=== PATIENT | female | born 1950 | race Caucasian/White ===

== ENCOUNTER 2024-03-23 06:17 | Observation (INO) ==
--- NOTE | 2024-02-04 14:47 | PAT Medication Instructions ---
Medication Instructions Date of Service February 04, 2024 Home Medications aspirin 81 mg tablet,delayed release 81 mg PO HS betamethasone dipropionate 0.05 % topical cream 1 applic topical DAILY PRN calcium 600 mg (1,500 mg)-vit C-vit D3 500 unit-vit E-minerals tablet 1 tab PO BID diclofenac 50 mg-misoprostol 200 mcg tablet,immed.and delayed release (Arthrotec) 1 tab PO BID flavoxate 100 mg tablet 100 mg PO BID fluconazole 200 mg tablet (Diflucan) 200 mg PO DAILY PRN fluticasone propionate 0.05 % topical cream 1 applic topical DAILY PRN gabapentin 800 mg tablet (Neurontin) 800 mg PO TID lorazepam 0.5 mg tablet (Ativan) 0.25 mg PO DAILY PRN magnesium oxide 400 mg (241.3 mg magnesium) tablet (MagOx) 400 mg PO HS metformin 500 mg tablet 500 mg PO QPM nystatin 500,000 unit tablet 500,000 unit PO DAILY nystatin-triamcinolone 100,000 unit/g-0.1 % topical cream 1 applic topical DAILY omeprazole 40 mg capsule,delayed release 40 mg PO QAM paroxetine HCl 30 mg tablet (Paxil) 45 mg PO HS phenazopyridine 200 mg tablet (Pyridium) 200 mg PO TID PRN simvastatin 40 mg tablet (Zocor) 40 mg PO QPM sulfamethoxazole 800 mg-trimethoprim 160 mg tablet (Bactrim DS) 0.5 tab PO Q2D trazodone 50 mg tablet 50 mg PO DAILY PRN cholecalciferol (vitamin D3) 100 mcg (4,000 unit) capsule 100 mcg PO BID loratadine 10 mg tablet (Claritin) 10 mg PO DAILY PRN melatonin 3 mg tablet 3 mg PO HS tramadol 50 mg tablet 50 mg PO Q6H PRN vit C 250 mg-vit E 90 mg-zinc 40 mg-copper 1 [id number] capsule (Prese rVision AREDS-2) 1 tab PO BID Continue as directed sulfamethoxazole 800 mg-trimethoprim 160 mg tablet (Bactrim DS) 0.5 tab PO Q2D trazodone 50 mg tablet 50 mg PO DAILY PRN(if needed) fluconazole 200 mg tablet (Diflucan) 200 mg PO DAILY PRN(if needed) lorazepam 0.5 mg tablet (Ativan) 0.25 mg PO DAILY PRN(if needed) ASK your prescriber and surgeon aspirin 81 mg tablet,delayed release 81 mg PO HS diclofenac 50 mg-misoprostol 200 mcg tablet,immed.and delayed release (Arthrotec) 1 tab PO BID STOP taking 2 weeks before surgery (or as soon as possible if surgery is within 2 weeks) calcium 600 mg (1,500 mg)-vit C-vit D3 500 unit-vit E-minerals tablet 1 tab PO BID vit C 250 mg-vit E 90 mg-zinc 40 mg-copper 1 [id number] capsule (PreserVision AREDS-2) 1 tab PO BID STOP taking 24 hours before surgery betamethasone dipropionate 0.05 % topical cream 1 applic topical DAILY PRN fluticasone propionate 0.05 % topical cream 1 applic topical DAILY PRN nystatin 500,000 unit tablet 500,000 unit PO DAILY nystatin-triamcinolone 100,000 unit/g-0.1 % topical cream 1 applic topical DAILY DO NOT take the morning of surgery phenazopyridine 200 mg tablet (Pyridium) 200 mg PO TID PRN cholecalciferol (vitamin D3) 100 mcg (4,000 unit) capsule 100 mcg PO BID loratadine 10 mg tablet (Claritin) 10 mg PO DAILY PRN Take morning of surgery With a small sip of water, OTHERWISE NOTHING TO EAT OR DRINK AFTER MIDNIGHT: flavoxate 100 mg tablet 100 mg PO BID gabapentin 800 mg tablet (Neurontin) 800 mg PO TID omeprazole 40 mg capsule,delayed release 40 mg PO QAM tramadol 50 mg tablet 50 mg PO Q6H PRN(if needed) Take evening before surgery flavoxate 100 mg tablet 100 mg PO BID gabapentin 800 mg tablet (Neurontin) 800 mg PO TID magnesium oxide 400 mg (241.3 mg magnesium) tablet (MagOx) 400 mg PO HS metformin 500 mg tablet 500 mg PO QPM paroxetine HCl 30 mg tablet (Paxil) 45 mg PO HS phenazopyridine 200 mg tablet (Pyridium) 200 mg PO TID PRN(if needed) simvastatin 40 mg tablet (Zocor) 40 mg PO QPM cholecalciferol (vitamin D3) 100 mcg (4,000 unit) capsule 100 mcg PO BID melatonin 3 mg tablet 3 mg PO HS tramadol 50 mg tablet 50 mg PO Q6H PRN(if needed) Other Notes If you have any questions please call us at [phone] or [phone] or [phone] or [phone]
--- NOTE | 2024-02-09 13:20 | Anesthesiology Consultation ---
Date of Service February 09, 2024 Assessment & Plan (1) Encounter for pre-operative examination: Chart Review Chart Review: Acceptable Risk for Surgery (pending PCP response re: hyperkalemia ) and Patient seen in Pre Admission Testing - Please send optimization form [facility] - Check BSG AM DOS Refused SAB - would like GA Patient with macular degeneration- difficulty reading - Patient is NOT an ideal OPJ candidate (currently 23 hour obs) Per PAT appt on 02/09/24, no recent illness/disease exposures, illness related symptoms, or recent illness/disease positive tests. Will leave to surgeon's discretion if preop Covid testing needed Teaching & Discussion Pre-Anesthesia Teaching/Discussion Notes: Instructed NPO after midnight before surgery,except medications with 15 cc of water. Medication instructions provided according to the PAT guidelines. History Surgery Operation Date: 03/01/24 07:00 Proposed Procedures p Right Total Knee Arthroplasty - Rafael Rose MD Height/Weight Height: 5 ft 2.5 in Weight: 74.8 kg Allergies Allergy/AdvReac Type Severity Reaction Status Date / Time acetaminophen Allergy Intermediate panic Verified 02/04/24 12:06 [From Tylenol Cold attack Multi-Symptom] caffeine Allergy Intermediate heart Verified 02/04/24 12:06 [From Midol Max St Menstrual] palpitations codeine Allergy Intermediate panic Verified 02/04/24 12:06 attack pamabrom [From Midol] Allergy Intermediate heart Verified 02/04/24 12:07 palpitation pyrilamine Allergy Intermediate heart Verified 02/04/24 12:08 [From Midol Max St Menstrual] palpitation escitalopram [From Lexapro] Allergy Unknown restless Verified 02/09/24 13:32 leg pregabalin [From Lyrica] Allergy Unknown panic Verified 02/09/24 13:32 attack pseudoephedrine Allergy Unknown panic Verified 02/04/24 12:07 [From Tylenol Cold attacks Multi-Symptom] ziprasidone [From Geodon] Allergy restless Verified 02/09/24 13:32 leg Medications Home Medications Medication Instructions Recorded Confirmed Last Taken aspirin 81 mg tablet,delayed 81 mg PO HS 11/02/23 02/04/24 Unknown release betamethasone dipropionate 0.05 % 1 applic topical DAILY PRN . 11/02/23 02/04/24 Unknown topical cream calcium 600 mg (1,500 mg)-vit 1 tab PO BID 11/02/23 02/04/24 Unknown C-vit D3 500 unit-vit E-minerals tablet diclofenac 50 mg-misoprostol 200 1 tab PO BID 11/02/23 02/04/24 Unknown mcg tablet,immed.and delayed release (Arthrotec) flavoxate 100 mg tablet 100 mg PO BID 11/02/23 02/04/24 Unknown fluconazole 200 mg tablet 200 mg PO DAILY PRN yeast infection 11/02/23 02/04/24 Unknown (Diflucan) fluticasone propionate 0.05 % 1 applic topical DAILY PRN . 11/02/23 02/04/24 U nknown topical cream gabapentin 800 mg tablet 800 mg PO TID 11/02/23 02/04/24 Unknown (Neurontin) lorazepam 0.5 mg tablet (Ativan) 0.25 mg PO DAILY PRN Anxiety 11/02/23 02/04/24 Unknown magnesium oxide 400 mg (241.3 mg 400 mg PO HS 11/02/23 02/04/24 Unknown magnesium) tablet (MagOx) metformin 500 mg tablet 500 mg PO QPM 11/02/23 02/04/24 Unknown nystatin 500,000 unit tablet 500,000 unit PO DAILY 11/02/23 02/04/24 Unknown nystatin-triamcinolone 100,000 1 applic topical DAILY 11/02/23 02/04/24 Unknown unit/g-0.1 % topical cream omeprazole 40 mg capsule,delayed 40 mg PO QAM 11/02/23 02/04/24 Unknown release paroxetine HCl 30 mg tablet (Paxil) 45 mg PO HS 11/02/23 02/04/24 Unknown phenazopyridine 200 mg tablet 200 mg PO TID PRN bladder 11/02/23 02/04/24 Unknown (Pyridium) infection symptoms simvastatin 40 mg tablet (Zocor) 40 mg PO QPM 11/02/23 02/04/24 Unknown sulfamethoxazole 800 0.5 tab PO Q2D 11/02/23 02/04/24 Unknown mg-trimethoprim 160 mg tablet (Bactrim DS) trazodone 50 mg tablet 50 mg PO DAILY PRN Sleep 11/02/23 02/04/24 Unknown cholecalciferol (vitamin D3) 100 100 mcg PO BID 02/04/24 02/04/24 Unknown mcg (4,000 unit) capsule loratadine 10 mg tablet (Claritin) 10 mg PO DAILY PRN skin itching 02/04/24 02/04/24 Unknown melatonin 3 mg tablet 3 mg PO HS 02/04/24 02/04/24 Unknown tramadol 50 mg tablet 50 mg PO Q6H PRN Pain 02/04/24 02/04/24 Unknown vit C 250 mg-vit E 90 mg-zinc 40 1 tab PO BID 02/04/24 02/04/24 Unknown mg-copper 1 [id number] capsule (PreserVision AREDS-2) Past Medical History Medical History Anxiety and depression Arthritis of right hip Fibromyalgia GERD (gastroesophageal reflux disease) well controlled and stable History of mononucleosis In 20s - possibly residual fatigue Hx of basal cell carcinoma s/p excision Hyperlipidemia Insomnia Interstitial cystitis frequent bladder infections>follows with Dr. Chance (urologist) [facility] Macular degeneration utilizes a reading machine Osteoarthritis Prediabetes Severe scoliosis Spinal stenosis Yeast infection on skin>reoccurring during summer months uses fluconazole topical PRN - no significant issues at this time Exercise / Class Metabolic Activity III < 4 Walking/Shop/Light housework (no chest pain, minimal SOB with flat surface ambulation - use wheeled walker ) Past Family History Family History Other No family history of adverse response to anesthesia Past Surgical History Surgical History History of cataract surgery right History of cholecystectomy History of colonoscopy History of cystoscopy Past Anesthesia History No Hx of Anesthesia Complications and No Family Hx of Anesthesia Complications (with exception to sister PONV ) History of PONV No Hx of PONV and No Hx of Motion Sickness (not currently ) Social History Smoking Status: Never smoker Hx Alcohol Use: Yes Alcohol type: wine alcohol intake frequency: a few times a month substance use type: does not use Review of Systems - Hx of snoring- no hx of sleep study Patient denies chest pain, shortness of breath at rest, cough, wheezing, palpitations. No hx of seizures, stroke, LA. No hx of blood clots or blood transfusions Physical Exam Vital Signs VITALS BP 115/74 P 73 TEMP 98.1 SP02 97% RESP 16 Constitutional no acute distress ENMT Mouth: no TMJ clicking Thyromental Distance: > or= 3.5 Finger Breadths (3.5) Mallampati Class: III Crowns to molars and side teeth Neck neck extension not limited Respiratory normal respiratory effort; no respiratory distress Auscultation: lungs clear to auscultation bilaterally; no wheezes Cardiovascular Rate/Rhythm: regular rate and regular rhythm Heart Sounds: no murmur Vessels: no carotid bruit Musculoskeletal Spine: no pain with cervical ROM Extremities: extremities normal to inspection Psychiatric Orientation: alert Lab Results Anesthesia Preop Results Results Anesthesia Widget: WBC 6.13 K/ul (4.8-10.8) 02/09/24 Hgb 12.7 g/dl (12.0-16.0) 02/09/24 Hct 39.6 % (37.0-47.0) 02/09/24 Plt 348 K/uL (130-400) 02/09/24 Na 139 mmol/L (136-145) 02/09/24 K 5.5 mmol/L (3.5-5.1) H 02/09/24 Cl 103 mmol/L (98-107) 02/09/24 CO2 31 mmol/L (21-32) 02/09/24 BUN 29 mg/dl (6-23) H 02/09/24 Creat 0.70 mg/dl (0.6-1.2) 02/09/24 Glucose Level 105 mg/dl (70-99(Fasting)) H 02/09/24 PT 10.9 Seconds (9.0-12.0) 02/09/24 PTT 28 Seconds (21-31) 02/09/24 INR 1.0 (0.9-1.1) 02/09/24 HA1c 6.0 % (4.5-5.6) H 02/09/24 Blood Type B Positive 02/09/24 Antibody Screen NEGATIVE 02/09/24 Testing Laboratory Results Hyperkalemia - will send optimization note to PCP Electrocardiogram Date: 02/10/24 Findings: + NSR @ (71bpm) Normal EKG per cardio Chest X-Ray Date: 02/10/24 Findings: + NAD FINDINGS: PA and lateral chest radiographs are obtained. No prior studies are available for comparison at the time of dictation. The cardiomediastinal silhouette is unremarkable noting atherosclerotic calcification of the thoracic aorta. The lungs and pleural spaces are clear. There is no pneumothorax. The skeletal structures are osteopenic. The bony thorax appears intact. Degenerative change and scoliosis is noted in the thoracic spine. Cholecystectomy clips are seen in the upper abdomen.
--- NOTE | 2024-02-27 09:06 | History & Physical Report ---
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 She is failed conservative measures. She like to have her knee fixed. Plan: Orgran taken to the operating do right total knee replacement. The risks Mente this procedure explained the patient include but not limited to DVT PE infection neurological injury vascular injury bleeding palm pain limb range of motion stiffness persistent instability persistent pain, need for further surgery in the future. Patient understands and desires to proceed. She got a severe deformity to her knee. She got MCL laxity. Will need to put a PS plus insert and probably. Will cement the tibial stem to try to maximize her stability. She is hoping to be discharged to home. She is going to have a friend come and stay with her. Will plan on DVT prophylaxis including thigh- high teds, SCDs, aspirin twice a day. History of Present Illness Chief Complaint: . Right knee pain discomfort and instability Primary Care Provider: NO PCP . Patient is a 73-year-old female from [place] who presents specifically for surgical treatment of her right knee. Data got a long history of knee problems followed by Dr. Cisneros as well as Dr. Justyna Swanson. With a past several years she developed increased pain discomfort and progressive deformity to her right knee and leg. Is having more more difficulty getting around. She has had to resort to a wheeled walker. She has been through therapy without much in the way of relief. She tried wearing a brace with little result. She takes multiple oral medicines that takes a little bit of the edge off. She enjoys riding a bike but have more difficulty doing this. As she now like to have her knee fixed. Allergies Allergy/AdvReac Type Severity Reaction Status Date / Time acetaminophen Allergy Intermediate panic Verified 02/04/24 12:06 [From Tylenol Cold attack Multi-Symptom] caffeine Allergy Intermediate heart Verified 02/04/24 12:06 [From Midol Max St Menstrual] palpitations codeine Allergy Intermediate panic Verified 02/04/24 12:06 attack pamabrom [From Midol] Allergy Intermediate heart Verified 02/04/24 12:07 palpitation pyrilamine Allergy Intermediate heart Verified 02/04/24 12:08 [From Midol Max St Menstrual] palpitation escitalopram [From Lexapro] Allergy Unknown restless Verified 02/09/24 13:32 leg pregabalin [From Lyrica] Allergy Unknown panic Verified 02/09/24 13:32 attack pseudoephedrine Allergy Unknown panic Verified 02/04/24 12:07 [From Tylenol Cold attacks Multi-Symptom] ziprasidone [From Geodon] Allergy restless Verified 02/09/24 13:32 leg Home Medications Medication Instructions Recorded Confirmed Type aspirin 81 mg tablet,delayed 81 mg PO HS 11/02/23 02/04/24 History release betamethasone dipropionate 0.05 % 1 applic topical DAILY PRN . 11/02/23 02/04/24 History topical cream calcium 600 mg (1,500 mg)-vit 1 tab PO BID 11/02/23 02/04/24 History C-vit D3 500 unit-vit E-minerals tablet diclofenac 50 mg-misoprostol 200 1 tab PO BID 11/02/23 02/04/24 History mcg tablet,immed.and delayed release (Arthrotec) flavoxate 100 mg tablet 100 mg PO BID 11/02/23 02/04/24 History fluconazole 200 mg tablet 200 mg PO DAILY PRN yeast infection 11/02/23 02/04/24 History (Diflucan) fluticasone propionate 0.05 % 1 applic topical DAILY PRN . 11/02/23 02/04/24 History topical cream gabapentin 800 mg tablet 800 mg PO TID 11/02/23 02/04/24 History (Neurontin) lorazepam 0.5 mg tablet (Ativan) 0.25 mg PO DAILY PRN Anxiety 11/02/23 02/04/24 History magnesium oxide 400 mg (241.3 mg 400 mg PO HS 11/02/23 02/04/24 History magnesium) tablet (MagOx) metformin 500 mg tablet 500 mg PO QPM 11/02/23 02/04/24 History nystatin 500,000 unit tablet 500,000 unit PO DAILY 11/02/23 02/04/24 History nystatin-triamcinolone 100,000 1 applic topical DAILY 11/02/23 02/04/24 History unit/g-0.1 % topical cream omeprazole 40 mg capsule,delayed 40 mg PO QAM 11/02/23 02/04/24 History release paroxetine HCl 30 mg tablet (Paxil) 45 mg PO HS 11/02/23 02/04/24 History phenazopyridine 200 mg tablet 200 mg PO TID PRN bladder 11/02/23 02/04/24 History (Pyridium) infection symptoms simvastatin 40 mg tablet (Zocor) 40 mg PO QPM 11/02/23 02/04/24 History sulfamethoxazole 800 0.5 tab PO Q2D 11/02/23 02/04/24 History mg-trimethoprim 160 mg tablet (Bactrim DS) trazodone 50 mg tablet 50 mg PO DAILY PRN Sleep 11/02/23 02/04/24 History cholecalciferol (vitamin D3) 100 100 mcg PO BID 02/04/24 02/04/24 History mcg (4,000 unit) capsule loratadine 10 mg tablet (Claritin) 10 mg PO DAILY PRN skin itching 02/04/24 02/04/24 History melatonin 3 mg tablet 3 mg PO HS 02/04/24 02/04/24 History tramadol 50 mg tablet 50 mg PO Q6H PRN Pain 02/04/24 02/04/24 History vit C 250 mg-vit E 90 mg-zinc 40 1 tab PO BID 02/04/24 02/04/24 History mg-copper 1 [id number] capsule (PreserVision AREDS-2) Wheeled Walker #1 ea 02/23/24 Rx Past Med/Surg History Problem List Right knee DJD Medical History Arthritis of right hip Insomnia Spinal stenosis Severe scoliosis Fibromyalgia Yeast infection on skin>reoccurring during summer months uses fluconazole topical PRN - no significant issues at this time Osteoarthritis GERD (gastroesophageal reflux disease) well controlled and stable Hx of basal cell carcinoma s/p excision History of mononucleosis In 20s - possibly residual fatigue Anxiety and depression Prediabetes Hyperlipidemia Interstitial cystitis frequent bladder infections>follows with Dr. Chance (urologist) [facility] Macular degeneration utilizes a reading machine Surgical History History of colonoscopy History of cystoscopy History of cholecystectomy History of cataract surgery right Family History Other No family history of adverse response to anesthesia Social History Smoking Status: Never smoker Second Hand Exposure: No; Hx Alcohol Use: Yes Alcohol type: wine Preferred Language: [place] Communication Ability Comment: can read if print is huge Optometry Assistant Required: No Beliefs That Will Affect Care: None Current Living Situation: Spouse Feels Safe at Home: Yes Assistive Devices: Brace/Splint/Immobilizer, Cane and Walker Review of Systems All systems reviewed & are unremarkable except as noted in HPI & below. Physical Exam . Physical examination was a pleasant fairly talkative elderly female. Examination of the right knee reveals a patient walks with a markedly antalgic gait. She comes in using a wheeled walker. She got severe valgus deformity to her knee which is increased with weightbearing. Her knee tends to collapse. Her range of motion is about 10 degrees short of full extension to 110 degrees of flexion. No particular instability. To valgus/laxity to a stress testing. No pain with hip motion. Constitutional WD/WN, vitals as above Neck trachea midline, no thyromegaly Respiratory normal respiratory effort, lungs clear to auscultation Cardiovascular RRR, no murmur, no edema Gastrointestinal (Abdomen) normal bowel sounds, soft, nontender, no hepatosplenomegaly Results & Data Results & Data Laboratory Results . Diagnostic Findings . X-rays of right knee were reviewed. Shows advanced right knee lateral co mpartment DJD. She has complete loss of lateral joint space. She got severe valgus deformity to her knee with gapping on the medial side. Diffuse osteopenia. PG Care Time/CCT Total # of Minutes Spent Total Time Spent with Patient: Total time spent is greater than 50% in coordination of care (as documented) at patient's floor/unit and/or counseling patient: Coding Level of Care Code None Diagnoses Right knee DJD M17.11
[~2024-03-23 06:17] MED LIST: ACETAMINOPHEN 500 MG TAB PO SCH; CeleBREX 200 MG CAP PO SCH; FAMOTIDINE 20 MG TAB PO SCH; LR 15ML/HR IV SCH; LR 60ML/HR IV SCH; METOCLOPRAMIDE HCL 10 MG TABLET PO SCH; ROPIV 0.5% 246mg, Ketorolac 30mg, EPINEPHrine 0.5mg in NSS INFIL SCH; TRANEXAMIC ACID 1,000 MG **IV Intra-op IV SCH; ceFAZolin 2000MG 2,000 MG/15 ML SYR IV SCH; dexAMETHasone**PF** 10 MG/ML VIAL IV SCH
[2024-03-23] MEDS ORDERED: BUPIVACAINE 0.5 % 5 MG/1 ML PF 10ML VIAL ONE (06:21)
[2024-03-23] MEDS ORDERED: ROPIVACAINE 0.5% 5 MG/ML 30 ML VIAL ONE (06:21)
--- NOTE | 2024-03-23 06:49 | History & Physical Bridge Note ---
Date of Service March 23, 2024 History & Physical Bridge Note I have examined the patient, reviewed the History & Physical and in the interval since the performance of the History & Physical I have noted the following changes of clinical significance: no changes noted
[2024-03-23] MEDS: ACETAMINOPHEN 500 MG TAB PO SCH ×2 (07:20→14:05)
[2024-03-23] MEDS: LR 60ML/HR IV SCH (07:21)
[2024-03-23] MEDS: CeleBREX 200 MG CAP PO SCH (07:26)
[2024-03-23] MEDS: METOCLOPRAMIDE HCL 10 MG TABLET PO SCH (07:26)
[2024-03-23] MEDS: FAMOTIDINE 20 MG TAB PO SCH (07:26)
[2024-03-23] MEDS: LR 15ML/HR IV SCH (07:36)
[2024-03-23] MEDS: dexAMETHasone**PF** 10 MG/ML VIAL IV SCH (07:36)
[2024-03-23] MEDS ORDERED: ePHEDrine sulfate 50 MG/ML AMP IV PRN (07:50)
[2024-03-23] MEDS ORDERED: ONDANSETRON INJ 2 MG/ML 2 ML VIAL IV PRN ×2 (07:50→12:21)
[2024-03-23] MEDS ORDERED: fentaNYL citrate PF 100 MCG/2 ML VIAL IV PRN (07:50)
[2024-03-23] MEDS ORDERED: ATROPINE SULFATE 0.1 MG/ML 10ML SYR IV PRN (07:50)
[2024-03-23] MEDS ORDERED: fentaNYL citrate PF 100 MCG/2 ML VIAL ONE (07:52)
[2024-03-23] MEDS ORDERED: MIDAZOLAM HCL 1 MG/ML 2ML VIAL ONE (07:52)
[2024-03-23] MEDS ORDERED: PROPOFOL IV EMULSION 10 MG/ML 20 ML VIAL IV ONE (08:33)
[2024-03-23] MEDS ORDERED: LIDOCAINE 2% 2 ML VIAL/AMP(20MG/ML) INFIL ONE (08:33)
[2024-03-23] MEDS: ceFAZolin 2000MG 2,000 MG/15 ML SYR IV SCH (08:49)
[2024-03-23] MEDS ORDERED: HYDROmorphone INJ 2 MG/ML SYR/VIAL ONE (09:20)
[2024-03-23] MEDS ORDERED: METOCLOPRAMIDE HCL INJ 5 MG/ML 2 ML VIAL ONE (09:22)
[2024-03-23] MEDS: ORTHO JOINT ANESTHETIC ONE (09:24)
--- OUTSIDE RECORDS SUMMARY | 2024-03-23 09:27 | External Medical Summary | Summary of Care ---
Author Name Unknown Organization [facility] [address] [facility] [address] Phone [phone] Care Team Providers Care Metal Fabricator Welder Name Role Phone Raegan Schaffer DO Primary Care Provide r Reason for Visit * Reason Comments eRx-Medication Refill Encounter Details Date Type Department Care Team (Late st Contact Info) Description 03/14/2024 Refill Rheumatology [place] [id number] [place] [address] Javy Steel MD [facility] [place] [address] Allergies Active Allergy Reactions Criticality Noted Date Comments Escitalopram Oxalate 07/28/2012 Restless legs Ziprasidone Hydrochloride 01/29/2012 Restless legs Pregabalin 01/29/2012 Made her aggitated Miconazole Nitrate 01/29/2012 Vaginal burning documented as of this encounter (statuses as of 03/15/2024) Medications Medication Sig Dispensed Refills Start Date End Date Status ATIVAN 0.5 MG PO TABS 1/2 tablet daily Active ZOCOR 20 MG PO TABS 1 daily Active PAXIL 30 MG PO TABS two tablets by mouth one time daily Active VITAMIN D 2000 UNITS PO CAPS 1 daily Active METAMUCIL 30.9 % PO POWD daily Active Meth-Hyo-M Bl-Na Phos-Ph Mitch (URO-MP) 118 MG CAPS As needed 0 10/20/19 16 Active Nystatin 502518 UNITS TABS Take 1 Tab by mouth 3 times a day. As needed 0 12/10/19 16 Active Aspirin 81 MG Tablet Take 1 Tablet by mouth in the morning. Active PREVIDENT 0.2 % SOLN daily 2 09/08/20 16 Active CYANOCOBALAMIN (VITAMIN B-12) 500 MCG Sublingual Tablet Take 1 Tablet by mouth in the morning. Active fluconazole (DIFLUCAN) 150 MG Tablet Take 1 Tablet by mouth in the morning and 1 Tablet before bedtime. 0 02/24/20 19 Active Ketoconazole 2 % cream Twice daily 0 03/06/20 19 Active flavoxATE HCl 100 MG TABS Take 100 mg by mouth daily. 12/06/19 20 Active melatonin 3 MG Tablet Take 1 Tablet by mouth in the morning. 09/09/20 18 Active Magnesium Oxide 400 (240 Mg) MG Tablet Take 1 Tablet by mouth in the morning. 09/09/20 18 Active Calcium Carbonate 600 MG Oral Tablet Take 1 Tablet by mouth in the morning. Active Betamethasone Dipropionate Aug 0.05 % External Cream (Diprolene AF) Apply 2 g topically to affected area daily. 08/01/20 20 Active metFORMIN HCl ER 500 MG Oral Tablet Extended Release 24 Hour (Glucophage XR) Take 1 Tablet by mouth daily with dinner. Active Omeprazole 20 MG Oral Capsule Delayed Release (PriLOSEC) Take 1 Capsule by mouth in the morning. Active Rolling Walker/BurgundyInd ications:Generaliz ed OA,Primary osteoarthritis of both knees Use as directed. Rolling walker with seat. Diagnosis - Knee osteoarthritis M17.0, M15.9 (generalized OA) 1 Each 07/15/20 23 Active traZODone HCl 50 MG Oral Tablet (Desyrel)Indicatio ns:Insomnia take 1 tablet by mouth at bedtime if needed for sleep 60 Tablet 2 08/28/20 23 Active Gabapentin 800 MG Oral Tablet (Neurontin)Indicat ions:Spinal stenosis of lumbar region without neurogenic claudication take 1 tablet by mouth every morning , 1 tablet AT NOON AND ONE TABLET BEFORE BEDTIME 270 Tablet 3 09/22/20 23 Active traMADol HCl 50 MG Oral Tablet (Ultram)Indication s:Fibromyalgia Take 1 Tablet by mouth every 6 hours as needed for Pain, Severe. 30 Tablet 1 11/16/19 24 Active Diclofenac-miSOPRO Stol 50-0.2 MG Oral Tablet Delayed Release take 1 tablet by mouth twice a day with food 180 Tablet 1 03/15/20 24 Active Diclofenac-miSOPRO Stol 50-0.2 MG Oral Tablet Delayed Release take 1 tablet by mouth twice a day with food 180 Tablet 4 03/06/20 23 024 Discontinued documented as of this encounter (statuses as of 03/15/2024) Active Problems Problem Noted Date Diagnosed Date Macular degeneration of both eyes 06/26/2023 Primary osteoarthritis, right shoulder Sacroiliitis 09/02/2017 Trochanteric bursitis of both hips 11/26/2016 Primary osteoarthritis of both knees 06/18/2016 Osteoarthritis, hip, bilateral 08/29/2014 Malignant basal cell neoplasm of skin Overview: face ICD-10 update of inactive term Fibromyalgia Spinal stenosis of lumbar region Depression Generalized OA Rosacea Fatty liver disease, nonalcoholic IBS (irritable bowel syndrome) Chronic interstitial cystitis MEDICATION USE AGREEMENT documented as of this encounter (statuses as of 03/15/2024) Immunizations Name Administration Dates Next Due COVID-19 mRNA, LNP-s, No Pre serve, 2-Dose Series (Moderna) 11/30/2020,11/02/2020 COVID-19, mRNA, LNP-s, PF, B ooster, 100mcg/0.5mg (Moderna) 12/18/2021,07/31/2021 Covid-19, Mrna, Lnp-s, Pf, B ivalent, 30 Mcg, IM, 12 yrs and above (Pfizer) 06/19/2022 Pneumococcal Conjugate Vaccine, 20-valent (Prevn ar20) 06/03/2022 Seasonal Influenza, Recombinant, RIV4, PF, (Flub lock) 08/16/2021 Seasonal Influenza, Split, IIV3, With Preserve, Inj 08/16/2021 documented as of this encounter Social History Tobacco Use Types Packs/Day Years Used Date Smoking Tobacco: Never Smokeless Tobacco: Never Alcohol Use Standard Drinks/Week Comments No 0 (1 standard drink = 0.6 oz pur e alcohol) Sex and Gender Information Value Date Recorded Sex Assigned at Not on file Gender Identity Not on file Sexual Orientation Not on file Job Start Date Occupation Industry Not on file Not on file Not on file documented as of this encounter Miscellaneous Notes * Telephone Encounter - Lizette Hidalgo [facility] - 03/15/2024 4:52 PM EDTSigned Prescriptions: Disp Refills Diclofenac-miSOPROStol 50-0.2 MG Oral Tabl*180 Ta*1 Sig: take 1 tablet by mouth twice a day with foodAuthorizing Provider: JAVY STEEL User: LIZETTE HIDALGO * Telephone Encounter - Lizette Hidalgo [facility] - 03/15/2024 4:46 PM EDT Rheumatology: Refill Request(s) Per review of the refill parameters, Medication was refilled Lizette Hidalgo [facility] Clinical Pharmacist Rheumatology Department 03/15/2024,4:46 PM * Telephone Encounter - Sumanth Lamb - 03/14/2024 8:27 PM EDTPending Prescriptions: Disp Refills Diclofenac-miSOPROStol 50-0.2 MG Oral Tabl*180 Ta*4 Sig: take 1 tablet by mouth twice a day with food * Telephone Encounter - Sumanth Lamb - 03/14/2024 8:25 PM EDT Did you pend patient's preferred pharmacy and medication before forwarding?yes Pharmacy: [id number] [facility] [place] Pending Prescriptions: Disp Refills Diclofenac-miSOPROStol 50-0.2 MG Oral Tab*180 Ta*4 Sig: take 1 tablet by mouth twice a day with food Last Visit: 06/26/2023 (in office), 10/23/2021 (telemedicine) Next Visit: 06/29/2024 If no future appointments scheduled, and last appointment is greater than a year ago, please schedule patient for a follow-up appointment Last date the medication was ordered: 04/10/2023 Is this request for a controlled substance?No Urine Drug Screen: Results for orders placed or performed in visit on 06/26/23 PAIN MANAGEMENT DRUG PANEL, URINE W/ INTERPRETATION Result Value Compliance Interpretation Based on the medication information provided: The presence of tramadol and o-desmethyltramadol is CONSISTENT with tramadol use. The absence of lorazepam is CONSISTENT with no recent lorazepam use prior to urine drug testing. Amphetamines Screen, U Negative Benzodiazepines Screen, U Refer to confirmation results (A) Cannabinoids Screen, U Negative Cocaine Metabolite Screen, U Negative Fentanyl Screen, U Negative Hydrocodone Screen, U Negative Methadone Metabolite Screen, U Negative Morphine/Codeine Screen, U Negative Oxycodone Screen, U Negative Valid Interpretation Normal Creatinine, U 50 Narrative Cutoff Concentrations: Drug Level Amphetamines 500 ng/mL Benzodiazepines 100 ng/mL Cannabinoids 50 ng/mL Cocaine Metabolite 150 ng/mL Fentanyl 1 ng/mL Hydrocodone / Hydromorphone 300 ng/mL Methadone Metabolite 100 ng/mL Morphine / Codeine 300 ng/mL Oxycodone / Oxymorphone 100 ng/mL Screening results are presumptive and can only be used for medical purposes. Confirmatory testing is available upon request. Results for orders placed or performed in visit on 10/19/12 TOX SCREEN, URINE, W/ CONFIRMATION Result Value Amphetamine NEGATIVE Barbiturates NEGATIVE Benzodiazepines NEGATIVE Cannabinoids NEGATIVE Cocaine Metabolite NEGATIVE Morphine / Codeine NEGATIVE OXYCODONE NEGATIVE METHADONE MEDICAL NEGATIVE TOX COMMENT SEE COMMENT DETECTION LIMIT SEE COMMENT Patient Phone Numbers Labs: Lab Results Component Value Date/Time CREAT 0.72 07/15/2023 12:00 AM CREAT 0.75 04/23/2022 12:07 PM CREAT 0.6 03/03/2013 04:14 PM POTASSIUM 4.1 07/15/2023 12:00 AM POTASSIUM 4.5 04/23/2022 12:07 PM POTASSIUM 4.6 03/03/2013 04:14 PM TSH 0.656 07/15/2023 12:00 AM LDLCALC 133 07/15/2023 12:00 AM LDLCALC 105 04/30/2021 09:58 AM ALT 28 03/03/2013 04:14 PM HGBA1C 6.3 07/15/2023 12:00 AM HGBA1C 6.0 04/23/2022 12:07 PM documented in this encounter Plan of Treatment Upcoming Encounters Date Type Department Care Team (Late st Contact Info) Description 06/29/2024 11:00 AM EDT Office Visit Rheumatology [place] [id number] [place] [address] Javy Steel MD [facility] [place] [address] Health Maintenance Due Date Last Done Comments Depression Monitoring 1962 Hepatitis C Screening 1968 DTaP,Tdap,and Td Vaccines (1 - Tdap) 1969 Cologuard 1995 Colonoscopy 1995 Colorectal Cancer Screening 1995 Fecal Occult Blood Test 1995 Sigmoidoscopy 1995 Zoster Vaccines (1 of 2) 2000 COVID-19 Vaccine ( season) 2023 06/19/2022, 12/18/2021, 07/31/2021, Additional history exists Mammogram 02/05/2024 02/04/2023, 12/27, 01/03/2021, Additional history exists Lipid Panel 12/17/2028 12/18/2023, 06/28, 07/15/2023, Additional history exists DXA Scan 07/30/2030 07/30/2023, 1109/2020, 07/25/2019 Pneumococcal Vaccine: 65+ Years Completed 06/03/2022 Influenza Vaccine (FLU shot) Completed , 08/16/2021, 08/16/2021 GARDASIL-HPV IMMUNIZATION SERIES Aged Out No longer eligible based on patient's age to complete this topic Hepatitis B Aged Out No longer eligi ble based on patient's age to complete this topic MENINGOCOCCAL (MENACTRA/MENVEO) Aged Out No longer eligible based on patient's age to complete this topic documented as of this encounter Medical Devices Not on filedocumented as of this encounter Care Teams Metal Fabricator Welder Relationship Specialty Start Date End Date Raegan Schaffer DO [address] [facility] [address] [place] [address] PCP - General Family Medicine 10/31/21 documented as of this encounter
[2024-03-23] MEDS ORDERED: hydrALAZINE HCL 20 MG/ML VIAL ONE (09:36)
[2024-03-23] MEDS: VANCOMYCIN HCL 1000MG/20ML VIAL ONE (10:05)
[2024-03-23] MEDS: TRANEXAMIC ACID 1,000 MG **IV Intra-op IV SCH (10:05)
[2024-03-23] MEDS: ROPIV 0.5% 246mg, Ketorolac 30mg, EPINEPHrine 0.5mg in NSS INFIL SCH (10:18)
[2024-03-23] MEDS ORDERED: ONDANSETRON INJ 2 MG/ML 2 ML VIAL ONE (10:42)
--- NOTE | 2024-03-23 11:11 | Operative Report ---
PG Post Operative Report Pre & Post Diagnosis Operation Date: 03/23/24 08:50 Pre-Op Diagnosis: Right Knee Degenerative Joint Disease Post-Op Diagnosis: Right Knee Degenerative Joint Disease I identified the patient and participated in the time-out.: Yes Procedure Operation Date: 03/23/24 08:50 Actual Procedures p Right Total Knee Arthroplasty(Right) - Rafael Rose MD Surgeon Rafael Rose MD Marketing Consultant Jacob Carlisle PA-C Estimated Blood Loss 50 Findings Consistent with Post-Op Diagnosis Operative findings revealed extensive erosive synovitis and bone destruction in all 3 compartments of the knee. She had extensive very thick synovitis. She had a hemarthrosis from bleeding from the bone. Severe valgus deformity. Specimens Right knee bone and synovium sent for pathology Anesthesia Type General Complications none Disposition Accompanied Patient To Recovery: No Indications The patient is a 73-year-old female with multiple medical comorbidities had a long history of gradual progressive right knee pain discomfort deformity. She failed all conservative measures. X-rays show advanced right knee lateral compartment DJD with severe valgus deformity and MCL laxity. She elected proceed with surgical management. We did use a posterior stabilized polyethylene plus insert due to her severe valgus deformity. We also placed a cemented tibial stem tray to maximize her stability. Description of Procedure Operative implants consist of: 1. Biomet Vanguard size 62.5 right posterior Byce femoral component. 2. Biomet size 67 tibial tray with a 10 mm x 80 mm cemented stem extension. 3. 12 mm PS plus polyethylene insert. 4. 31 x 8 all poly patella. The patient was taken the operating, identified, placed on the operating table in the supine position. All contact areas were appropriately padded. IV antibiotics provided by anesthesia team. A general anesthetic was implemented. A Noyola catheter was placed in sterile fashion. A right thigh trach was then placed. The right lower extremity was then prepped and draped in usual sterile fashion. The right leg was elevated exsanguinated with an Esmarch and a turn was placed at 3 mmHg. An anterior approach to the right knee was then performed to longitudinal incision centered over the patella. Sharp dissection carried through subcutaneous tissue down the extensor mechanism. Medial parapatellar arthrotomy incision was made. A complete extensive synovectomy of the suprapatellar pouch and medial and lateral gutters was performed. She had a very thick extensive synovitis. Some subperiosteal dissection was carried out medially. I tried to minimize dissection medially to preserve as much MCL tissue and MCL strength as possible. The patella was subluxated laterally. The knee was flexed. The lateral patellofemoral ligament was released. The osteophytes taken on distal femur. The ACL PCL were released from the distal femur and the tibia subluxated anteriorly. The external treatment line jig was then placed on the interface the tibia and adjusted 12 mm medially. The proximal tibial cut was made remove about 5 mm of bone from the medial side. The saphenous essentially cut fairly flush with the posterior lateral defect. The tibia sized to a size 67. We pinned a 67 drain placement. The tibia. I then reamed up to a size 12 reamer. The trial implant was placed and fit nicely. Attention drawn the femur. The distal femur Zaro the sharp drop with intramedullary canal was suction. A right 5 degree valgus cutting guide was placed. The distal femoral cutting block was pinned in place. Distal femoral cut was made take an additional 3 mm bone off distal femur. Knee was brought out into full extension I did release some of the IT band and posterior lateral capsule to equalize extension gap. Great care was taken throughout the procedure protect the peroneal nerve at all times. The knee was flexed. The femur was sized to a size 62.5. The AP cutting block was pinned parallel to the epicondylar axis which was 4 degrees of external rotation. The anterior cut, anterior chamfer, posterior cut, posterior chamfer cuts were made. The box cutting guide was placed and just slightly box cut was made. The knee was flexed with the remnants of the medial and lateral menisci were excised. The osteophytes were taken off the posterior aspect the femur. She had very large cavitary defects particular on the of the medial femoral condyle which we curetted of all synovium. She had some laterally and anteriorly as well. This seemed to affect the femur more than the tibia. The trial femoral component was placed. The tibial tray was already in place. I trialed the knee and a 12 mm insert fit most appropriately. We did use a PS plus insert in order to maximize her stability. Attention drawn the patella. The patella was cleaned of all soft tissues. Patella thickness measured about 19 mm in thickness was cut down to 14. Was sized to a size 31 patella. There are also multiple cysts in the patella. The locals were drilled for 31 patella. The lateral osteophytes removed. Patella button was placed. Knee was taken through range of motion patella tracked nicely with no thumbs test. Attention drawn to place the permanent components. All trial components were removed. Bone plug was placed in the distal femur limit blood loss. A double batch Palacos G cement was mixed. I did add an additional gram of vancomycin due to her multiple medical issues. A Biomet Vanguard size 62.5 right posterior Byce femoral component, size 67 tibial tray with a cemented stem extension, 812 mm PS plus insert, and a 31 x 8 all poly patella then cemented in place. Knee was brought out in full extension till cement hardened. Final cement check was then performed. The pericapsular tissues were injected with total of 100 cc of joint mix. The patient did receive 1 g tranexamic acid. The tourniquet was then let down for final tourniquet time of 75 minutes. Hemostasis assured with electrocautery. Extensor Metros then closed with combination 1 PDS suture #1 Vicryl suture in a [id number] fashion. Extensor Meclomen checked found to be intact with subcutaneous tissue then closed with 2 Dexon suture in a buried interrupted fashion skin was closed skin tamera. Leg was then cleaned and dried and a sterile dressing with Xeroform, 4 fours, sterile cast padding, Jonathan bandage were applied. Patient then transferred to the recovery room in stable condition. Patient tolerated procedure well and there are no complications. Jacob Carlisle, my physician assistant statistician, was present for the entire procedure. His assistance was essential and required for appropriate patient positioning, prepping and draping, surgical exposure, performing the technical details of the operation, placement the implants, closure of the wound, and placement of the sterile bandage. I attest to the content of the Intraoperative Record and any orders documented therein. Any exceptions are noted below.
--- NOTE | 2024-03-23 11:57 | Anesthesiology Progress Note ---
Date of Service March 23, 2024 Anesthesia Post Procedure Vital Signs Vital Signs: Temp Pulse Resp BP Pulse Ox O2 Del Method O2 Flow Rate 03/23/24 11:50 99 H 16 134/57 L 95 Nasal Cannula 3 03/23/24 11:40 36.4 C L 98 H 18 136/58 L 96 Nasal Cannula 3 03/23/24 11:30 97 H 19 133/56 L 96 Nasal Cannula 3 03/23/24 11:20 100 H 17 126/58 L 98 Oxymask 6 03/23/24 11:10 98 H 18 136/62 98 Oxymask 8 03/23/24 11:00 36.1 C L 101 H 13 139/75 94 Oxymask 8 03/23/24 07:00 36.8 C 71 20 164/83 H 100 Room Air Pain Intensity Right Knee: Pain Intensity: 0 Transfer of Care Handoff Completed per policy Notes Mental Status: alert / awake / arousable and participated in evaluation Patient Amnestic to Procedure: Yes Nausea / Vomiting: adequately controlled Pain: adequately controlled Airway Patency, RR, SpO2: stable & adequate BP & HR: stable & adequate Hydration State: stable & adequate Anesthetic Complications: no major complications apparent and Pt Satisfied with anesthetic care
[2024-03-23] MEDS ORDERED: FLUCONAZOLE 100 MG TAB PO PRN (12:21)
[2024-03-23] MEDS ORDERED: bisacodyL 10 MG SUPP PR PRN (12:21)
[2024-03-23] MEDS ORDERED: GLUCOSE 40% GEL 15 GM TUBE PO PRN (12:21)
[2024-03-23] MEDS ORDERED: HYDROmorphone INJ 0.5 MG/0.5 ML SYR IV PRN (12:21)
[2024-03-23] MEDS ORDERED: GLUCAGON FOR INJ 1 MG VIAL SQ PRN (12:21)
[2024-03-23] MEDS ORDERED: PHENAZOPYRIDINE HCL 200 MG TAB PO PRN (12:21)
[2024-03-23] MEDS ORDERED: DEXTROSE 50% 50 ML SYRINGE IV PRN (12:21)
[2024-03-23] MEDS ORDERED: ALUMINUM/MAGNESIUM SUSP 30 ML UDC PO PRN (12:21)
[2024-03-23] MEDS ORDERED: MAGNESIUM HYDROXIDE SUSP 30 ML UDC PO PRN (12:21)
[2024-03-23] MEDS ORDERED: NALOXONE HCL 0.4 MG/1 ML VIAL/CARP IV PRN (12:21)
[2024-03-23] MEDS ORDERED: METOCLOPRAMIDE HCL INJ 5 MG/ML 2 ML VIAL IV PRN (12:21)
[2024-03-23] MEDS ORDERED: traZODone HCL 50 MG TAB PO PRN (12:21)
[2024-03-23] MEDS ORDERED: GLUCOSE 10 TAB/TUBE PO PRN (12:21)
[2024-03-23] MEDS ORDERED: LORATADINE 10 MG TAB PO PRN (12:21)
[2024-03-23] MEDS ORDERED: CARBOHYDRATES FOR HYPOGLYCEMIA PO PRN (12:21)
[2024-03-23] MEDS: SODIUM CHLORIDE 0.9% 1,000 ML IV SCH (12:32)
[2024-03-23] MEDS ORDERED: BETAMETHASONE DIP AUG (DIPROLENE) 0.05% CR 15 GM TUBE EXT PRN (12:46)
[2024-03-23] MEDS ORDERED: TRIAMCINOLONE ACET 0.1% CR 15 GM TUBE TOP PRN (12:50)
[2024-03-23] MEDS: KETOROLAC TROMETHAMINE 15 MG/ML VIAL IV SCH (14:00)
[2024-03-23] MEDS: GABAPENTIN 800 MG TAB PO SCH (14:05)
--- NOTE | 2024-03-23 16:08 | XRay Report ---
XR knee RT 1 or 2V routine CLINICAL HISTORY: Postoperative evaluation. COMPARISON: Right knee radiographs November 02, 2023. FINDINGS: Alignment of the total right knee arthroplasty is anatomic. No periprosthetic fracture or unexpected radiopaque foreign body. There are skin tamera. IMPRESSION: Expected findings following total right knee arthroplasty. ACT 112: Negative or not required by law. Electronically signed by: Jacky Graham M.D. 03/23/2024 4:07 PM
[2024-03-23] MEDS: ASCORBIC ACID 500 MG TAB PO SCH (16:26)
[2024-03-23] MEDS: ceFAZolin 1000MG 1,000 MG/7.5 ML SYR IV SCH (16:38)
[2024-03-23] MEDS: TRANEXAMIC ACID / 0.7% NACL 1,000 MG/100 ML BAG IV SCH (17:30)
[2024-03-23] MEDS: LORazepam 0.5 MG TAB PO PRN (17:55)
[2024-03-23] MEDS: MAGNESIUM OXIDE 400 MG TAB PO SCH (19:45)
[2024-03-23] MEDS: SIMVASTATIN 40 MG TAB PO SCH (19:46)
[2024-03-23] MEDS: PARoxetine HCL 10 MG TAB PO SCH (19:46)
[2024-03-23] MEDS: DOCUSATE SODIUM 100 MG CAP PO SCH (19:47)
[2024-03-23] MEDS: ASPIRIN 81 MG ECTAB PO SCH (19:47)
[2024-03-23] MEDS: MELATONIN 3 MG TAB PO SCH (19:49)
[2024-03-23] MEDS: SENNA 8.6 MG TAB PO SCH (19:49)
[2024-03-23] MEDS: CHOLECALCIFEROL 25 MCG (1000 UNITS) TAB PO SCH (20:33)
[2024-03-23] MEDS ORDERED: CHOLECALCIFEROL PO SCH (21:00)
[2024-03-23] MEDS ORDERED: SENNA 8.6 MG TAB PO SCH (21:00)
[2024-03-24] MEDS: traMADol HCL 50 MG TABLET PO PRN (03:32)
[2024-03-24 06:14] LABS: Hematocrit (blood only) 28.5 % (37.0-47.0); Hemoglobin 9.1 g/dl (12.0-16.0); Mean Corpuscular Hemoglobin 29.4 pg (25.0-34.0); Mean Corpuscular Hgb Conc 31.9 g/dL (32.0-36.0); Mean Corpuscular Volume 91.9 fL (80.0-100.0); Mean Platelet Volume 9.4 fL (9.4-12.4); Platelet Count 290 K/uL (130-400); RDW Coefficient of Variation 14.5 % (11.5-14.5); RDW Standard Deviation 48.7 fL (36.4-46.3); White Blood Count 9.02 K/ul (4.8-10.8)
[2024-03-24 06:34] LABS: BUN Creatinine Ratio 35.8 (10-20); Calcium 8.2 mg/dl (8.6-10.3); Creatinine Clr Calc Pharmacy 88.4 ml/min; Est GFR (African American) 109.2 ml/min; Est GFR (Non-African American) 94.2 ml/min; Potassium 3.6 mmol/L (3.5-5.1)
[2024-03-24] MEDS: dexAMETHasone 10 MG in SYRINGE 0 ML IV SCH (07:34)
[2024-03-24] MEDS: CEROVITE ADV FORMULA TAB PO SCH (08:18)
[2024-03-24] MEDS: MULTIVITAMIN TAB PO SCH (08:18)
[2024-03-24] MEDS: PANTOprazole 40 MG TAB PO SCH (08:19)
[2024-03-24] MEDS: NYSTATIN 500,000 UNIT TAB PO SCH (08:19)
[2024-03-24] MEDS: SULFAMETHOXAZOLE/TRIMETHOPRIM DS 800/160MG TAB PO SCH (08:20)
[2024-03-24] MEDS: NYSTATIN/TRIAMCIN CR 15 GM TUBE EXT SCH (08:22)
--- NOTE | 2024-03-24 13:43 | Orthopedic Progress Note ---
Date of Service March 24, 2024 Assessment & Plan (1) Status post right knee replacement: Plan: 73-year-old female postop day 1 from a right knee replacement doing quite well. Pains controlled. She is neurologically intact. Plan: 1. DVT prophylaxis including thigh-high teds, SCDs, aspirin twice a day. 2. PT/OT. Weight-bear as tolerated. A right total knee protocol. 3. Pain control doing well with current pain regimen. 4. Disposition plan to discharge to home with some home health. She is can have a friend come and stay with her. Admission and Anticipated Discharge Date Admission Date: March 23, 2024 Subjective 73-year-old female postop day 1 from a right total knee replacement for extensive erosive knee arthritis. She is doing much better this morning. She had some shakes last night but this seemed to be resolved. No chest pain or shortness of breath. Not feeling dizzy or lightheaded. Physical Exam Physical Exam: Physical exam shows a pleasant elderly female. She is lying in bed looks pretty comfortable. Examination of the right leg reveals the dressing be clean dry and intact. Leg is well aligned patient can dorsiflex and plantarflex her foot appropriately. She is neurologically intact. Respiratory: normal respiratory effort, lungs clear to auscultation Cardiovascular: RRR, no murmur, no edema Gastrointestinal (Abdomen): normal bowel sounds, soft, nontender, no hepatosplenomegaly Results & Data Vital Signs (Past 12 Hours) Vital Signs Temp Pulse Resp BP Pulse Ox O2 Del Method 03/24/24 11:10 36.9 C 79 16 145/69 H 94 03/24/24 07:17 36.9 C 79 16 145/69 H 94 Room Air 03/24/24 03:26 36.7 C 82 14 151/70 H 94 Room Air Laboratory Results Hemoglobin is 9.1. Hematocrit is 28.5. Electrolytes are stable.
--- NOTE | 2024-03-29 11:45 | Discharge Summary ---
Date of Service March 29, 2024 Discharge Data Procedures Performed Operation Date: 03/23/24 08:50 Actual Procedures p Right Total Knee Arthroplasty(Right) - Rafael Rose MD Hospital Course (1) Status post right knee replacement: This is a 73 year old patient admitted on 03/23/24 and underwent total knee arthroplasty. She tolerated the procedure well and there were no complications. Transferred to the PACU post op and later to the orthopedic floor for further care. She was given ancef for antibiotic prophylaxis. She was also given TRACE stockings, SCDs, and aspirin for DVT prophylaxis. Hemoglobin, hematocrit, and vital signs were monitored during her hospital stay and remained stable. Did not require any blood transfusions. There were no complications during her hospital stay. By post op day #1 the patient was tolerating a diabetic diet, pain was reasonably controlled with oral pain medicine, and she was participating in physical therapy. On post op day #1 the patient was discharged home and set up with home health care. She was given printed discharge instructions including prescriptions for extra strength tylenol, aspirin, cefadroxil, ketorolac, zofran, senokot, and tramadol. Continue physical therapy, weight bearing as tolerated. Continue TRACE stockings. Follow up approximately 2 weeks post op or sooner if there are problems or concerns. Coding Level of Care Code None Diagnoses Status post right knee replacement Z96.651
== END 2024-03-24 12:29 | disposition home health service (06) ==
LOC: ASU 06:17 → 3E 06:17